=== PATIENT | female | born 1980 | race Caucasian/White ===

== ENCOUNTER 2022-03-07 10:19 | Outpatient (REF) | payer OTHER, SELFPAY ==
--- NOTE | ~2022-03-07 | XR_ITS ---
EXAMINATION: XR ANKLE, RIGHT CLINICAL INFORMATION: Right ankle pain 3 days after fall COMPARISON: None TECHNIQUE: AP, lateral, and mortise views of the right ankle. FINDINGS: There is some mild soft tissue swelling seen. No acute fractures appreciated. Ankle mortise appears intact. Well-circumscribed ovoid density seen about the distal aspect of the lateral malleolus which may represent secondary ossification center or sequela of previous trauma. There is a plantar calcaneal spur present. XR/XR ankle RT min 3V IMPRESSION: No acute fracture or dislocation of the right ankle. Plantar calcaneal spur.
== END 2022-03-07 10:20 | disposition home or self-care (01) ==
LOC: HO.XRAY 10:19
PROVIDERS: Visit Provider Family Medicine
DX: M25.571 Pain in right ankle and joints of right foot (principal)
CPT/HCPCS: 73610

== ENCOUNTER 2022-06-17 17:29 | Emergency (ER) | payer OTHER, SELFPAY ==
[2022-06-17 17:37] VITALS: BP 132/84; PULSE 77; RESP 18; TEMP 36.8; O2SAT 98; BMI 32.5
--- NOTE | 2022-06-17 19:09 | ED.DENTAL ---
HPI - Dental/Oral General Chief complaint: Dental/Oral Stated complaint: Dental pain Time Seen by Provider: 06/17/22 18:03 Source: patient Mode of arrival: ambulatory Limitations: no limitations History of Present Illness HPI Narrative: 42-year-old female with a past medical history of poor dentition throughout presenting to the ED with complaints of acute on chronic dental pain over the past few days worse today. Reports that she tried to call a dentist and they reported that they cannot extract her teeth until the infections are gone. She reports they did not put her on any antibiotics. She denies any fevers, chills, difficulty swallowing, drooling, changes in voice, sore throat, chest pain or shortness breath, recent falls or trauma or any other symptoms complaints or concerns at this time. MD Complaint: tooth pain Location: Tooth # (All of the patient's teeth) Onset (ago): day(s) Duration: worsening Severity: severe Severity scale (1-10): >10 Relieving factors: nothing Exacerbating factors: chewing, cold, heat and drinking fluids Context: history of dental caries and poor dental care Associated symptoms: gum swelling and ear pain Treatment prior to arrival: other (She has been trying [id number] medication no symptomatic) Related Data Previous Rx's Medication Instructions Recorded chlorhexidine gluconate 0.12 % 15 ml buccal BID #473 mL 06/17/22 mouthwash clindamycin HCl 150 mg capsule 450 mg PO Q6H Dental infections 14 06/17/22 days #168 caps ibuprofen 800 mg tablet 800 mg PO Q8H PRN pain #14 tabs 06/17/22 oxycodone 5 mg tablet 5 mg PO Q6H PRN pain #14 tabs 06/17/22 Allergies Allergy/AdvReac Type Severity Reaction Status Date / Time Penicillins [PENICILLINS] Allergy Unknown HIVES Unverified 07/07/20 17:39 From AUGMENTIN Allergy Unknown UNSURE Uncoded 07/07/20 17:39 From Augmentin Allergy Unknown UNSURE Uncoded 07/07/20 17:39 penicillin Allergy Unknown Unknown Uncoded 06/17/22 17:36 Review of Systems Review of Systems: Constitutional : No Fever, No Chills, No changes in PO intake, No difficulty speaking, no recent dental procedure, no heat or cold intolerance while eating, no recent face trauma, ENT/Mouth : + Dental pain, No Sore throat, No Jaw pain, No throat swelling, No swallowing difficulty, no change in voice, No facial swelling, no drooling, no trismus, no bleeding, no lacerations, no tongue swelling, + gum swelling, Eyes: No Eye Pain, No periorbital Swelling Cardiovascular : No Chest Pain, No SOB Respiratory : No Cough, No Sputum, No Wheezing, No Smoke Exposure, No Dyspnea Gastrointestinal : No Nausea, No Vomiting, No Diarrhea Genitourinary : No Dysuria Musculoskeletal : No Myalgias Skin : No rash, no facial swelling or redness, Neuro : No Weakness, No Numbness, No Headache Yes all other systems are reviewed and are negative [facility] Past Medical History Attestation statement: The following information was validated with the patient. Source: old records reviewed and nursing notes reviewed Physical Exam Vital Signs: Vital Signs: Last Vital Signs Temp 98.3 F 06/17/22 17:37 Pulse 77 06/17/22 17:37 Resp 18 06/17/22 17:37 BP 132/84 06/17/22 17:37 Pulse Ox 98 06/17/22 17:37 O2 Del Method 06/17/22 17:37 BMI result Body Mass Index 32.5 vital signs have been reviewed as normal and appeared to be correct. Blood pressure normal. Heart rate normal. Respiration rate normal. Temperature normal. Oxygen saturation normal. Appearance: Alert. Oriented X3. No acute distress. Head: Normal external exam. Normocephalic. Atraumatic. Eyes: PERRLA. EOMI. Conjunctiva and sclera normal. Eyelids normal. ENT: EAC normal. TM's Normal. Pharynx normal. Uvula midline. Moist mucous membranes. No trismus noted. No drooling noted. No muffled voice noted. Dentition: Patient with poor dentition throughout with multiple old fractured teeth with multiple dental caries. Gingival within normal limits. No fluctuance. Not consistent with peritonsillar abscess. Not consistent with dental abscess. No salivary duct obstruction noted. Neck: Normal inspection. Neck supple. FROM. No adenopathy. Thyroid Normal. No meningeal signs. No neck mass noted. Trachea midline. CVS: Normal heart rate and rhythm. Heart sound normal. No murmurs noted. Pulses normal throughout. Respiratory: No respiratory distress. Painless inspiration. Breath sounds normal. No wheezes/rales/rhonchi noted. Chest nontender. No accessory muscle usage noted or decreased air movement noted. Back: Full range of motion noted. Skin: Skin warm and dry. Normal skin color. Normal skin turgor. No rashes/lesions/lacerations noted. Extremities:Extremities exhibit normal range of motion. Extremities nontender. Neuro: Oriented X 3. No motor deficit. No sensory deficit. Reflexes normal. Course Course Course Narrative: Patient with poor dentition throughout with multiple dental caries/old fractures. No trismus/drooling. No stridor noted. Not consistent with abscess. Not consistent with peritonsillar/pharyngeal/submandibular. Patient's voice is normal. No muffled voice noted. Tolerating secretions well. Will DC home with antibiotics and symptomatic treatment instructions to follow up with her oral surgeon this week and to return if any new or worsening symptoms. Patient understands agrees with this plan. [facility] - Dental/Oral Medical Records Attestation: I reviewed the patient's medical records. Discharge Plan Discharge Clinical Impression: Toothache, Dental caries Patient Disposition: Home, Self-Care Instructions: Toothache (ED) Prescriptions: New clindamycin HCl 150 mg capsule 450 mg PO Q6H 14 Days Qty: 168 0RF oxycodone 5 mg tablet 5 mg PO Q6H PRN (Reason: pain) Qty: 14 0RF Rx Instructions: Partial Fill upon patient request. ibuprofen 800 mg tablet 800 mg PO Q8H PRN (Reason: pain) Qty: 14 0RF chlorhexidine gluconate 0.12 % mouthwash 15 ml buccal BID Qty: 473 0RF Referrals: Physician,Unknown J [Primary Care Provider] - 1 day (Please call your oral surgeon tomorrow to make a follow-up appointment within 1 week to get your teeth extracted) Print Language: Dutch
[2022-06-17] MEDS: oxyCODONE HCl Immed Release 5 MG TABLET PO (19:30)
[2022-06-17] MEDS: Ibuprofen 800 MG TABLET PO (19:31)
[2022-06-17] MEDS: Clindamycin HCL 300 MG CAPSULE 600 MG PO (19:31)
== END 2022-06-17 20:33 | disposition home or self-care (01) ==
PROVIDERS: Emergency Provider Internal Medicine
DX: K02.9 Dental caries, unspecified (principal)
CPT/HCPCS: 99283